=== PATIENT | male | born 1965 | race Caucasian/White ===

== ENCOUNTER 2018-09-02 17:00 | Emergency (ER) | payer BC ==
[~2018-09-02] VITALS: Ht 177.8 cm; Wt 73.9 kg
[2018-09-02 17:47] LABS: ABSOLUTE NEUTROPHILS 4.8 thou/uL (1.4-8.2); BASOPHILS 0.6 % (0.0-2.0); EOSINOPHILS 2.6 % (0.0-3.0); HEMATOCRIT 44.4 % (42.0-52.0); HEMOGLOBIN 15.3 gm/dL (14.0-18.0); LYMPHOCYTES 35.6 % (24.0-44.0); MCH 32.8 pg (26.0-34.0); MCHC 34.5 g/dL (28.0-37.0); MCV 95.2 fL (80.0-100.0); MONOCYTES 9.6 % (1.0-8.0); PLATELET COUNT 319 thou/uL (150-400); POLYS 51.6 % (36.0-66.0); RBC 4.67 mil/uL (4.50-6.00); RDW 13.2 % (10.5-14.5); WBC 9.4 thou/uL (4.0-11.0)
[2018-09-02 17:59] LABS: ANION GAP 12 mmol/L (7-16); BUN 13 mg/dL (7-18); CALCIUM 8.7 mg/dL (8.5-10.1); CHLORIDE 104 mmol/L (98-107); CO2 25 mmol/L (21-32); CREATININE 0.8 mg/dL (0.7-1.3); GLUCOSE 101 mg/dL (74-106); POTASSIUM 3.7 mmol/L (3.5-5.1); SODIUM 141 mmol/L (136-145)
[2018-09-02 18:10] LABS: ALBUMIN 3.7 g/dL (3.4-5.0); LIPASE 893 U/L (73-393); SGOT 21 U/L (15-37); SGPT 33 U/L (30-65); TOTAL BILIRUBIN 0.2 mg/dL (<0.1-1.0); TOTAL PROTEIN 6.8 g/dL (6.4-8.2); TROPONIN-I <0.06 ng/mL (<0.06)
[2018-09-02 19:33] VITALS: BP 124/76
--- NOTE | 2018-09-03 09:02 | EKG ---
[address] [address] ELECTROCARDIOGRAM REPORT Name: CHAD LEDEZMA Room #: [facility]P [facility]ITAL[id number] ������������������ Admission: 09/02/18 ������������������ Attend Phys: Discharge: 09/02/18 ������������������ Date of : 67 Report #: [id number] ����������������������������������������������������������������� [id number] THIS REPORT FOR: //name// [facility] ED Test Date: 2018-09-02 Test Time: 18:12:22 Pat Name: CHAD LEDEZMA Department: Room: Gender: M [employer] Supervisor: CASANDRA : 1965 Requested By: Leroy Segura Order Number: [id number] MD: Ector Fontaine Measurements Intervals [place] Rate: 66 P: 34 IA: 169 QRS: 32 QRSD: 96 T: 31 QT: 395 QTc: 414 Interpretive Statements Sinus rhythm Baseline wander in lead(s) V2 No previous ECG available for comparison Electronically Signed On 09-03-2018 9:02:09 CDT by Ector Fontaine [email or web address] ��������������������������������������������� <ELECTRONICALLY SIGNED> ���������������������������������������� By: Ector Fontaine MD ��������������������������������������������� 09/03/18 0902 [id number] Ector Fontaine MD /EPI
== END 2018-09-02 19:33 | disposition home or self-care (01) ==
LOC: ER 17:00
PROVIDERS: Physician Assistant
DX: R07.89 Other chest pain (principal); R06.02 Shortness of breath; R11.10 Vomiting, unspecified; E07.9 Disorder of thyroid, unspecified; Z21 Asymptomatic human immunodeficiency virus [HIV] infection status